=== PATIENT | male | born 1970 | race Two or more races ===

== ENCOUNTER 2025-06-19 13:13 | Inpatient (IN) | payer OTHER ==
[2025-06-19] VITALS (23 sets, daily range): BP systolic 136–166; BP diastolic 90–107
[~2025-06-19] VITALS: Ht 177.8 cm; Wt 82.8 kg
[2025-06-19 13:49] LABS: BASOPHILS ABSOLUTE AUTO 0.02 K/mm3 (0.00-0.23); BASOPHILS PERCENT AUTO 0 % (0-2); EOSINOPHILS ABSOLUTE AUTO 0.00 K/mm3 (0.00-0.68); EOSINOPHILS PERCENT AUTO 0 % (0-6); Hematocrit 47.5 % (37.0-53.0); Hemoglobin 16.0 g/dL (13.5-17.5); IMMATURE GRAN ABSOLUTE AUTO 0.04 K/mm3 (0.00-0.10); IMMATURE GRAN PERCENT AUTO 0 % (0-1); LYMPHOCYTES ABSOLUTE AUTO 2.16 K/mm3 (0.84-5.20); LYMPHOCYTES PERCENT AUTO 18 % (21-46); MONOCYTES ABSOLUTE AUTO 0.84 K/mm3 (0.16-1.47); MONOCYTES PERCENT AUTO 7 % (4-13); Mean Corpuscular HGB Conc 33.7 g/dL (31.5-36.5); Mean Corpuscular Volume 89 fL (80-100); NEUTROPHILS ABSOLUTE AUTO 9.27 K/mm3 (1.96-9.15); NEUTROPHILS PERCENT AUTO 75 % (41-73); NRBC ABSOLUTE 0.00 K/mm3 (0.00-0.02); NRBC Auto 0.0 /100 WBC (0.0-0.2); Platelet Count 316 K/mm3 (150-400); RDW Coefficient Variation 12.1 % (11.7-14.2); RDW Standard Deviation 39.2 fL (35.1-46.3)
[2025-06-19 14:14] LABS: Alanine Aminotransfer (ALT/SGP 34.0 U/L (12-78); Albumin, Blood 3.8 g/dL (3.4-5.0); Albumin/Globulin Ratio 1.0 (0.8-1.8); Anion Gap 11.0 mmol/L (3-11); Aspartate Aminotrans (AST/SGOT 24.0 U/L (12-37); Bilirubin, Total 1.4 mg/dL (0.1-1.0); Blood Urea Nitrogen 24.0 mg/dL (8-24); CO2, Blood 26.0 mmol/L (21-32); Calcium, Blood 8.9 mg/dL (8.5-10.1); Chloride, Blood 96.0 mmol/L (98-108); Creatinine, Blood 0.73 mg/dL (0.60-1.20); Globulin, Blood 4.0 g/dL (2.2-4.0); Glucose, Blood 288.0 mg/dL (70-99); Potassium, Blood 3.1 mmol/L (3.5-5.5); Sodium, Blood 130.0 mmol/L (136-145); Total Protein, Blood 7.8 g/dL (6.4-8.2)
[2025-06-19 14:23] LABS: pH Blood Venous 7.51 (7.34-7.37)
[2025-06-19] MEDS ORDERED: NS 1,000 ML IV SCH ×3 (14:45→16:40)
[2025-06-19] MEDS ORDERED: CefTRIAXone Sodium 1,000 MG in NS 50 ML IV ONE ×2 (15:05→17:15)
[2025-06-19 15:19] LABS: Source, Urine Clean Catch
[2025-06-19 15:25] LABS: Bilirubin, Urine Neg (Neg); Color, Urine Yellow (P-Yellow); Glucose Qualitative, Urine 4+ (Neg); Ketones, Urine 2+ (Neg); Leukocyte Esterase, Urine Neg (Neg); Protein, Urine 3+ (Neg); Specific Gravity, Urine 1.020 (1.003-1.022); Urobilinogen, Urine NORM (Normal)
[2025-06-19 15:40] LABS: U Amphetamine Screen Not Detected; U Barbiturate Screen Not Detected; U Benzodiazapine Screen Not Detected; U Buprenorphine Screen Not Detected; U Cannabinoids Screen Not Detected; U Cocaine Screen Not Detected; U Methadone Screen Not Detected; U Methamphetamine Screen Not Detected; U Opiates Screen Not Detected; U Oxycodone Screen Not Detected; U Phencyclidine Screen Not Detected
[2025-06-19 15:47] LABS: White Blood Cells, Urine 0-2 /hpf (0-5)
[2025-06-19] MEDS ORDERED: FLU VACC TS2025-26(6MOS UP)/PF 45 MCG/0.5 ML SYRINGE IM SCH (16:40)
[2025-06-19] MEDS ORDERED: Aspir 8181 MG PO (16:48)
[2025-06-19] MEDS ORDERED: Amlodipine Bes2.5 MG PO (16:48)
[2025-06-19] MEDS ORDERED: ATOR40TA PO (16:49)
[2025-06-19] MEDS ORDERED: CARV25 PO (16:49)
[2025-06-19] MEDS ORDERED: CLOP75 PO (16:49)
[2025-06-19] MEDS ORDERED: CYCL10 PO (16:50)
[2025-06-19] MEDS ORDERED: JARDIANCE25 MG PO (16:50)
[2025-06-19] MEDS ORDERED: FENO54 PO (16:50)
[2025-06-19] MEDS ORDERED: FREESTYLE LIBR1 EAC7 MC (16:51)
[2025-06-19] MEDS ORDERED: LEVO T PO (16:51)
[2025-06-19] MEDS ORDERED: PANT40 PO (16:52)
[2025-06-19] MEDS ORDERED: METF500 PO (16:52)
[2025-06-19] MEDS ORDERED: MAGNESIUM OXID500 MG PO (16:52)
[2025-06-19] MEDS ORDERED: RAMI5 PO (16:53)
[2025-06-19] MEDS ORDERED: Ondansetron HCl 2 MG / ML 2ML Vial IV PRN (16:55)
[2025-06-19] MEDS ORDERED: CefTRIAXone Sodium 2,000 MG in NS 100 ML IV SCH (17:00)
[2025-06-19] MEDS ORDERED: GENTAMICIN IV SCH (17:00)
[2025-06-19] MEDS ORDERED: Vancomycin (Pharmacy Consult) IV SCH (17:00)
[2025-06-19 17:57] LABS: Influenza A, PCR NEGATIVE (NEGATIVE); Influenza B, PCR NEGATIVE (NEGATIVE); Resp Syncytial Virus, PCR NEGATIVE (NEGATIVE); SARS-Cov-2 (COVID-19) PCR, MMC NEGATIVE (NEGATIVE)
[2025-06-19] MEDS ORDERED: Insulin Human Lispro 100 Units/ML 3ML Syringe SC SCH (18:00)
[2025-06-19] MEDS ORDERED: Ampicillin Sod 2,000 MG in NS 100 ML IV SCH (18:00)
[2025-06-19] MEDS ORDERED: Acyclovir 750 MG in Dextrose 5% 250 ML IV SCH (19:00)
--- NOTE | 2025-06-19 19:11 | NUR ---
PT ARRIVED AT 1715. CT PE STUDY COMPLETED AND PT REMAINS INTUBATED AND SEDATED NEURO: RASS -4, NO GAG, COUGH OR CORNEAL REFLEX. NO BABINSKI. DOES NOT RESPOND TO PAIN. FEBRILE T 103. COOLING BLANKET APPLIED CARDIAC: SINUS TACH, HR 100-110S, SBP 140-150S. PULM: COARSE RHONCHI UPPER/MID LOBES, VERY DIM IN BASES. ET 8.0 24CM AT TEETH. ACVC 16/450/5/40 GI: ABDOMEN IS MODERATLEY DISTENDED, FIRM TO PALPATION. UNABLE TO COLLECT STOOL SPECIMENS NO BM. ABSENT BOWEL TONES. OG TUBE IN PLACE TO LIS. : JARQUIN IN PLACE DRAINING CLEAR/YELLOW URINE. GOOD UOP SKIN: INTACT. LARGE SKIN TAG ON MID BACK/SHOULDERS - INTACT
[2025-06-19] MEDS ORDERED: Rocuronium Bromide 10 MG/ML 5ML Injection IV ONE (19:27)
[2025-06-19] MEDS ORDERED: Etomidate 2MG / ML 10ML Vial XX ONE (19:27)
[2025-06-19] MEDS ORDERED: FentaNYL Citrate 50 MCG/ML 2 ML Injection IV PRN (20:00)
[2025-06-19] MEDS ORDERED: Ampicillin Sodium 2000MG Vial IV SCH (20:00)
[2025-06-19] MEDS ORDERED: LORazepam 2 MG/ML 1ML Injection IV PRN (20:00)
[2025-06-19] MEDS ORDERED: Cetylpyridinium Chloride 1 EA MISC MT SCH (20:00)
[2025-06-19] MEDS ORDERED: Heparin Sodium,Porcine 5,000 UNIT/0.5 ML SDV SC SCH (21:00)
[2025-06-20] VITALS (83 sets, daily range): BP systolic 119–185; BP diastolic 75–113
[2025-06-20] MEDS ORDERED: Hydrogen Peroxide 1.5 % Solution MT SCH
[2025-06-20] MEDS ORDERED: Insulin Regular 100 UNIT/ML 10ML Vial SC SCH
[2025-06-20 03:03] LABS: BASOPHILS ABSOLUTE AUTO 0.02 K/mm3 (0.00-0.23); BASOPHILS PERCENT AUTO 0 % (0-2); EOSINOPHILS ABSOLUTE AUTO 0.00 K/mm3 (0.00-0.68); EOSINOPHILS PERCENT AUTO 0 % (0-6); Hematocrit 40.8 % (37.0-53.0); Hemoglobin 13.9 g/dL (13.5-17.5); IMMATURE GRAN ABSOLUTE AUTO 0.03 K/mm3 (0.00-0.10); IMMATURE GRAN PERCENT AUTO 0 % (0-1); LYMPHOCYTES ABSOLUTE AUTO 1.73 K/mm3 (0.84-5.20); LYMPHOCYTES PERCENT AUTO 18 % (21-46); MONOCYTES ABSOLUTE AUTO 0.58 K/mm3 (0.16-1.47); MONOCYTES PERCENT AUTO 6 % (4-13); Mean Corpuscular HGB Conc 34.1 g/dL (31.5-36.5); Mean Corpuscular Volume 88 fL (80-100); NEUTROPHILS ABSOLUTE AUTO 7.20 K/mm3 (1.96-9.15); NEUTROPHILS PERCENT AUTO 75 % (41-73); NRBC ABSOLUTE 0.00 K/mm3 (0.00-0.02); NRBC Auto 0.0 /100 WBC (0.0-0.2); Platelet Count 250 K/mm3 (150-400); RDW Coefficient Variation 12.4 % (11.7-14.2); RDW Standard Deviation 39.7 fL (35.1-46.3)
[2025-06-20 03:14] LABS: pH Blood Venous 7.53 (7.34-7.37)
[2025-06-20 03:23] LABS: Gentamicin, Random 1.8 ug/Ml
[2025-06-20 03:27] LABS: Magnesium, Blood 2.1 mg/dL (1.6-2.4)
[2025-06-20 03:33] LABS: Alanine Aminotransfer (ALT/SGP 28.0 U/L (12-78); Albumin, Blood 2.8 g/dL (3.4-5.0); Albumin/Globulin Ratio 0.8 (0.8-1.8); Anion Gap 11.0 mmol/L (3-11); Aspartate Aminotrans (AST/SGOT 24.0 U/L (12-37); Bilirubin, Total 1.3 mg/dL (0.1-1.0); Blood Urea Nitrogen 15.0 mg/dL (8-24); CO2, Blood 23.0 mmol/L (21-32); Calcium, Blood 7.5 mg/dL (8.5-10.1); Chloride, Blood 105.0 mmol/L (98-108); Creatinine, Blood 0.54 mg/dL (0.60-1.20); Globulin, Blood 3.3 g/dL (2.2-4.0); Glucose, Blood 221.0 mg/dL (70-99); Phosphorus, Blood 0.7 mg/dL (2.5-4.9); Potassium, Blood 2.4 mmol/L (3.5-5.5); Sodium, Blood 137.0 mmol/L (136-145); Total Protein, Blood 6.1 g/dL (6.4-8.2)
[2025-06-20] MEDS ORDERED: Potassium Phosphate Dibasic 30 MM in Dextrose 5% 500 ML IV STA (04:06)
--- NOTE | 2025-06-20 05:05 | NUR ---
SHIFT SUMMARY PT REMAINS UNARROUSABLE TO ANY STIMULI, PUPILS PINPOINT, EYES FIXED FORWARD WHILE MOVING HEAD SIDE TO SIDE AND CERVICAL NECK STIFF WITH MANUAL REPOSITIONING, PT REMAINS FEBRILE T/O THE NIGHT WITH TMAX 103.7. PT VENTILATED AC/VC MODE 16/450/5/30% FIO2 AND TOLERATING WELL WITH SPO2 >95%. SBP IN THE 140-160'S AND HR 90-100'S SINUS TACHYCARDIA. ABDOMEN REMAINS DISTENDED, WITH BOWEL TONES PRESENT, NO BM THIS SHIFT. TEMP JARQUIN CATHETER IN PLACE, PATENT, AND DRAINING TO GRAVITY. PROPOFOL INFUSING @ 30MCG/KG/MIN FOR SEDATION. NO IMMEDIATE CONCERNS NTOED AT THIS TIME. WILL REPORT TO ONCOMING RN
[2025-06-20] MEDS ORDERED: CALCIUM GLUC IN NACL, ISO-OSM 50 ML IV ONE (07:35)
[2025-06-20 09:08] LABS: Phosphorus, Blood 1.3 mg/dL (2.5-4.9); Potassium, Blood 2.7 mmol/L (3.5-5.5)
[2025-06-20 12:13] LABS: Acinetobacter baumannii DNA Not Detected copy/mL (NOT DETECT); Chlamydia pneumonia Not Detected (NOT DETECT); Enterobacter cloacae DNA Not Detected copy/mL (NOT DETECT); Escherichia coli DNA Not Detected copy/mL (NOT DETECT); Haemophilus influenzae DNA Not Detected copy/mL (NOT DETECT); Human Coronavirus RNA Not Detected (NOT DETECT); Human Metapneumovirus RNA Not Detected (NOT DETECT); Influenza virus A RNA Not Detected (NOT DETECT); Influenza virus B RNA Not Detected (NOT DETECT); Klebsiella aerogenes DNA Not Detected copy/mL (NOT DETECT); Klebsiella oxytoca DNA Not Detected copy/mL (NOT DETECT); Klebsiella pneumoniae DNA Not Detected copy/mL (NOT DETECT); Moraxella catarrhalis DNA Not Detected copy/mL (NOT DETECT); Proteus sp DNA Not Detected copy/mL (NOT DETECT); Pseudomonas aeruginosa DNA Not Detected copy/mL (NOT DETECT); Respiratory syncytial Vir RNA Not Detected (NOT DETECT); Rhinovirus+Enterovirus RNA Not Detected (NOT DETECT); Serratia marcescens DNA Not Detected copy/mL (NOT DETECT); Staphylococcus aureus DNA Not Detected copy/mL (NOT DETECT); Streptococcus agalactiae DNA Not Detected copy/mL (NOT DETECT); Streptococcus pneumoniae DNA Not Detected copy/mL (NOT DETECT); Streptococcus pyogenes DNA Not Detected copy/mL (NOT DETECT)
[2025-06-20] MEDS ORDERED: POTASSIUM PHOSPHATE DIBASIC IV ONE (12:30)
[2025-06-20] MEDS ORDERED: NS IV ONE (12:30)
[2025-06-20 13:03] LABS: Gentamicin, Random <0.2 ug/Ml; Magnesium, Blood 2.1 mg/dL (1.6-2.4); Potassium, Blood 3.2 mmol/L (3.5-5.5)
--- NOTE | 2025-06-20 13:19 | NUR ---
SBT/SAT THIS AM 5831-2600. PT ON SPONTANEOUS FOR ALMOST 2HR 12/5 50% FIO2. PT REMAINS OFF SEDATION. NEURO: ALERT, FOLLOWING COMMANDS, NO COUGH, GAG OR SWALLOW. ABLE TO NOD YES AND NO. GOOD STUDENT ACCOUNTS MANAGER AND MOVING BLE'S. PERRLA. PULM: RR INCREASED TO 30-40S. SPO2 DECREASED TO 90-91% PLACED BACK ON ACVC 16/450/5/30. SPO2 >95%. COPIOUS ORAL SECREATIONS. SOME SCANT THICK YELLOW SPUTUM. GI: ABDOMENT REMAINS MODERATELY DISTENDED, TAUT AND FIRM. HE DOES HAVE BOWEL TONES PRESENT TODAY. : IMPRESSIVE UOP, YELLOW/CLEAR FROM JARQUIN. SKIN: INTACT, SKIN TAG TO MID BACK. UNABLE TO CONTACT FAMILY WITH AN UPDATE NO CONTACT INFORMATIO IN HIS CHART AT THIS TIME. LUMBAR PUNCTURE DELAYED DUE TO PO PLAVIX. UNABLE TO COLLECT STOOL SAMPLE PT HAS NOT HAD A BM.
[2025-06-20] MEDS ORDERED: Calcium Chloride 10% 2,000 MG in NS 100 ML IV ONE ×2 (13:35→20:45)
--- NOTE | 2025-06-20 15:39 | NUR ---
PT PLACED BACK ON SEDATION STARTING TO BITE AT ET TUBE AND GRIMACING. BECOMING ANXIOUS. HE REMAINS INTUBATED. NO CHANGES IN SETTINGS. DAUGHTERS AT [facility] GIVEN UPDATE BY DR BAEZ AND I SPENT 45MIN WITH THEM ANSWERING VARIOUS QUESTIONS AND PROVIDING EDUCATION. THEY DID VIDEO CALL THEIR MOTHER AND I WAS ABLE TO UPDATE HER WELL. MORE HISTORY PROVIDED BY DAUGHTERS. THEY STATED THAT 1-2 DAYS PRIOR TO ADMISSION HE HAD DEVELOPED CRAMPING IN HIS LEFT LOWER EXTREMITY AND IT WAS EFFECTING HIS MOBILITY AND CAUSED DIFFICULTY WALKING. HE REMAINS HYPERTENSIVE SBP 180S, DR BACH RESTARTED HOME CARDIAC MEDICATIONS I ADMINISTERED THROUGH HIS OG. HE IS INTERMITTENTLY FEBRILE WITH COOLING BLANKET AND TYLENOL. PT HAS STILL NOT HAD A BM TO COLLECT STOOL SAMPLES. HE REMAINS WITH NO COUGH, GAG OR SWALLOW AND COPIOUS CLEAR ORAL SECRETIONS.
[2025-06-20 17:36] LABS: Vancomycin, Trough 6.4 ug/mL (5.0-10.0)
[2025-06-20 20:33] LABS: Phosphorus, Blood 2.4 mg/dL (2.5-4.9); Potassium, Blood 2.5 mmol/L (3.5-5.5)
[2025-06-20] MEDS ORDERED: Potassium Phosphate Dibasic 20 MM in NS 500 ML IV ONE (20:45)
[2025-06-21] VITALS (79 sets, daily range): BP systolic 126–170; BP diastolic 80–115
[2025-06-21 03:24] LABS: BASOPHILS ABSOLUTE AUTO 0.02 K/mm3 (0.00-0.23); BASOPHILS PERCENT AUTO 0 % (0-2); EOSINOPHILS ABSOLUTE AUTO 0.05 K/mm3 (0.00-0.68); EOSINOPHILS PERCENT AUTO 1 % (0-6); Hematocrit 37.2 % (37.0-53.0); Hemoglobin 12.6 g/dL (13.5-17.5); IMMATURE GRAN ABSOLUTE AUTO 0.03 K/mm3 (0.00-0.10); IMMATURE GRAN PERCENT AUTO 0 % (0-1); LYMPHOCYTES ABSOLUTE AUTO 2.07 K/mm3 (0.84-5.20); LYMPHOCYTES PERCENT AUTO 22 % (21-46); MONOCYTES ABSOLUTE AUTO 0.56 K/mm3 (0.16-1.47); MONOCYTES PERCENT AUTO 6 % (4-13); Mean Corpuscular HGB Conc 33.9 g/dL (31.5-36.5); Mean Corpuscular Volume 89 fL (80-100); NEUTROPHILS ABSOLUTE AUTO 6.92 K/mm3 (1.96-9.15); NEUTROPHILS PERCENT AUTO 72 % (41-73); NRBC ABSOLUTE 0.00 K/mm3 (0.00-0.02); NRBC Auto 0.0 /100 WBC (0.0-0.2); Platelet Count 189 K/mm3 (150-400); RDW Coefficient Variation 12.3 % (11.7-14.2); RDW Standard Deviation 40.1 fL (35.1-46.3)
[2025-06-21 03:47] LABS: Alanine Aminotransfer (ALT/SGP 22.0 U/L (12-78); Albumin, Blood 2.2 g/dL (3.4-5.0); Albumin/Globulin Ratio 0.7 (0.8-1.8); Anion Gap 9.0 mmol/L (3-11); Aspartate Aminotrans (AST/SGOT 27.0 U/L (12-37); Bilirubin, Total 1.8 mg/dL (0.1-1.0); Blood Urea Nitrogen 8.0 mg/dL (8-24); CO2, Blood 26.0 mmol/L (21-32); Calcium, Blood 8.1 mg/dL (8.5-10.1); Chloride, Blood 106.0 mmol/L (98-108); Creatinine, Blood 0.52 mg/dL (0.60-1.20); Globulin, Blood 3.1 g/dL (2.2-4.0); Glucose, Blood 147.0 mg/dL (70-99); Magnesium, Blood 1.5 mg/dL (1.6-2.4); Phosphorus, Blood 2.0 mg/dL (2.5-4.9); Potassium, Blood 2.6 mmol/L (3.5-5.5); Sodium, Blood 138.0 mmol/L (136-145); Total Protein, Blood 5.3 g/dL (6.4-8.2)
[2025-06-21 04:17] LABS: pH Blood Arterial 7.52 (7.35-7.45)
[2025-06-21] MEDS ORDERED: Potassium Chl 20MEQ/Water100ML 100 ML IV SCH (05:05)
[2025-06-21] MEDS ORDERED: Magnesium Sulf 2 GM/Water 50ML 50 ML IV ONE ×2 (05:05→17:50)
[2025-06-21] MEDS ORDERED: Potassium Phosphate Dibasic 20 MM in Dextrose 5% 500 ML IV ONE (05:05)
[2025-06-21] MEDS ORDERED: Potassium Phos/Sodium Phos 250 MG PACK PT SCH (05:40)
[2025-06-21] MEDS ORDERED: Potassium Phosphate Dibasic 30 MM in Dextrose 5% 500 ML IV ONE (06:00)
--- NOTE | 2025-06-21 06:22 | NUR ---
SHIFT SUMM: PT REMAINS INTUBATED AND SEDATED AND VENT SETTINGS REMAIN UNCHANGED. PROPOFOL INFUSING (SEE FLOWSHEET). RASS -3 PT MEDICATED FOR PAIN PER EMAR. COOLING BLANKET ON PT WITH A MAX TEMP OF 102 AND MEDICATED PER EMAR. PATENT OGT. SBP'S 140'S-170'S, HR IN 70-80'S. SPO2 >96% INTUBATED AND SEDATED. PIV'S REMAIN PATENT.Q6 BS COMPLETED. Q2 TURNS COMPLETED AND BED BATH AND LINEN CHANGE COMPLETED. CHG BATH COMPLETE AND CATH CARE DONE. BED LOW AND LOCKED FOR SAFETY.
--- NOTE | 2025-06-21 08:29 | NUR ---
ASSUMPTION OF CARE ASSUMED CARE OF PATIENT AT APPROX 0700. PATIENT INTUBATED AND SEDATED. RASS -3. PROPOFOL INFUSING PER EMAR. SEE FLOWSHEET FOR TITRATIONS. VENT SETTINGS AC/VC 16/450/8 30%. WITH SPO2 >94%. HR SINUS IN THE 80S-90S. BP STABLE WITH MAPS >65. OGT PATENT. TEMP JARQUIN PATENT AND DRAINING URINE TO GRAVITY. COOLING BLANKET ON PATIENT FOR CONTINUED ELEVATED TEMP. CALL LIGHT IN REACH. BED IN LOWEST POSITION.
[2025-06-21 15:23] LABS: HIV 1,2 COMBO ANTIGEN/ANTIBODY Negative (Negative)
[2025-06-21 17:35] LABS: Magnesium, Blood 1.8 mg/dL (1.6-2.4); Potassium, Blood 2.6 mmol/L (3.5-5.5); Vancomycin, Trough 14.0 ug/mL (5.0-10.0)
[2025-06-21 17:35] LABS: RHEUMATOID FACTOR <10 IU/mL (0-14)
--- NOTE | 2025-06-21 17:50 | NUR ---
SHIFT SUMMARY PATIENT INTUBATED. RASS -2. PATIENT OCCATIONALLY TRACKS AND CAN GIVE THUMBS UP AND WIGGLE TOES, BUT IS EXTREMELY SLOW TO RESPOND. VENT SETTINGS AC/VC 16/450/8 40% FIO2 WITH SPO2 >94%. HR SINUS IN THE 80S-90S. BP STABLE WITH MAPS >65. PATIENT HAD SBT TODAY AND WAS ABLE TO TOLERATE THAT FOR A COUPLE OF HOURS. OGT PATENT AND DRAINING TO LOW INTERMITTENT SUCTION. TEMP JARQUIN PATENT AND DRAINING CLEAR YELLOW URINE TO GRAVITY. TMAX 100.5. PATIENT MEDICATED PER EMAR. COOLING BLANKET IN PLACE. PATIENT HAD SMEAR BM X2 TODAY, BUT NOT ENOUGH STOOL OUT TO COLLECT A SAMPLE. CALL LIGHT IN REACH. BED IN LOWEST POSITION. FAMILY UPDATED ON PATIENT PLAN OF CARE TODAY. CONTACTED DR BACH AT 1745 ABOUT PATIENTS LABS. POTASSIUM 2.6 AND MAG 1.8. ORDERS FOR MAG SULFATE AND KCL PUT IN PER DR BACH.
--- NOTE | 2025-06-21 20:05 | NUR ---
PT UPDATE: PT HAD AN APPROXIMATELY ONE MINUTE SEIZURE. PT WAS ADMINISTERED ATIVAN AND PRIMARY NURSE WAS NOTIFIED.
--- NOTE | 2025-06-21 21:27 | NUR ---
ASSUMPTION OF CARE NOTE: PT REMAINS INTUBATED AND EYES OPEN BUT DOES NOT TRACK AT THIS TIME AND HAS A RIGHT SIDED GAZE. NO PURPOSEFUL MOVEMNT AT THIS TIME AND PT IS UNABLE TO FOLLOW COMMANDS. ATIVAN GIVEN PER EMAR UPON BEGINNING OF SHIFT DO TO RT WITNESSING PT HAVING A SEIZURE, THIS RN DID NOT WITNESS A SEIZURE. PT HAS COOLING BLANKET ON A TEMP ON 99.0. PATENT SARINA PICC LINE AND PATENT PIV'S. PATENT TEMP JARQUIN AND RECTAL TUBE DRAINING TO GRAVITY. SBP'S 150'S AND HR IN 70-80'S. SPO2 >96% ON VENT (SEE VENT SETTINGS). OGT SET TO LIS PT HAS BED LOW AND LOCKED FOR SAFETY.
[2025-06-21 22:35] LABS: Campylobacter Sp Not Detected (NOT DETECT); E. Coli O157 Not Detected (NOT DETECT); Enteroaggregative E. coli-EAEC Not Detected (NOT DETECT); Enteropathogenic E. coli-EPEC Not Detected (NOT DETECT); Enterotoxigenic E. coli-ETEC Not Detected (NOT DETECT); Salmonella Sp Not Detected (NOT DETECT); Shiga Toxin-prod E. coli-STEC Not Detected (NOT DETECT); Shigella/Enteroin E. coli-EIEC Not Detected (NOT DETECT); Vibrio Sp Not Detected (NOT DETECT)
[2025-06-21] MEDS ORDERED: NS 250 ML IV PRN (23:20)
[2025-06-22] VITALS (56 sets, daily range): BP systolic 122–176; BP diastolic 62–146
[2025-06-22 04:11] LABS: Magnesium, Blood 2.0 mg/dL (1.6-2.4)
[2025-06-22 04:24] LABS: Anion Gap 10.0 mmol/L (3-11); Blood Urea Nitrogen 10.0 mg/dL (8-24); CO2, Blood 28.0 mmol/L (21-32); Calcium, Blood 7.6 mg/dL (8.5-10.1); Chloride, Blood 98.0 mmol/L (98-108); Creatinine, Blood 0.43 mg/dL (0.60-1.20); Glucose, Blood 144.0 mg/dL (70-99); Phosphorus, Blood 1.5 mg/dL (2.5-4.9); Potassium, Blood 2.4 mmol/L (3.5-5.5); Sodium, Blood 134.0 mmol/L (136-145)
[2025-06-22] MEDS ORDERED: Potassium Phosphate Dibasic 30 MM in Dextrose 5% 500 ML IV ONE (05:30)
--- NOTE | 2025-06-22 06:17 | NUR ---
SHIFT SUMM: PT REMAINS INTUBATED AND SEDATION TURNED BACK ON FOR PT AT 0130 AT 10MCG/KG/MIN (SEE FLOW SHEET FOR TITRATIONS). PT CONTINUES TO HAVE A RIGHT SIDED GAZE AND DOES NOT TRACK ME AT THIS TIME OR ABLE TO FOLLOW COMMANDS.NO PURPOSEFUL MOVEMENTS NOTICED EXCEPT PT HAS TRIED TO GRAB AT TUBE DURING BED BATH.PT HAS BEEN MEDICATED FOR PAIN PER EMAR. PT CONTINUES TO SOUND DIM ESPECIALLY ON L SIDE OF LUNGS PER RT. PER DR BACH CHEST X RAY COMPLETED AND RECCOMENDATION OF RT INCREASING PEEP TO 10 COMPLETED. Q6 BS CHECKS COMPLETED. .SBP'S 140-160'S AND HR IN 70-80'S. SPO2 >90% WITH SOME DESATTING THIS SHIFT AND PER DR COLON AFTER LOOKING AT X-RAY HE SAID TO HAVE RT ADVANCE THE THE ETT TUBE 2 CM AND NOW AT 24CM AT THE TEETH. PT HAS HAD NO FEVER THIS SHIFT AND COOLING BLANKET HAS BEEN REMOVED. TEMP JARQUIN REMAINS PATENT AND SARINA PICC AND PIV'S REMAIN PATENT. OGT SET TO LIS. BED BATH COMPLETED AND CHG BATH AND FRANCESCO CARE WIPES TO CLEAN JARQUIN. BED LOW AND LOCKED FOR SAFETY AND BUE SOFT RESTRAINTS IN PLACE.
--- NOTE | 2025-06-22 08:00 | NUR ---
ASSUMPTION OF CARE ASSUMED CARE OF PATIENT AT APPROX 0800. PATIENT INTUBATED AND SEDATED. VENT SETTINGS AC/VC 16/450/10 40% FIO2 WITH SPO2 >94%. RASS -1 TO -2. PATIENT ABLE TO FOLLOW COMMANDS, BUT IS SLOW TO DO SO AND MORE SLOW WITH THE LEFT THAN THE RIGHT. PATIENT HAS PICC TO SARINA WITH PROPOFOL RUNNING PER EMAR. SEE FLOWSHEET FOR TITRATIONS. HR SINUS IN THE 90S. BP STABLE WITH MAPS >65. OGT PATENT AND CLAMPED. RECTAL TUBE PATENT AND DRAINING TO GRAVITY. TEMP JARQUIN PATENT AND DRAINING PALE YELLOW URINE TO GRAVITY. CALL LIGHT IN REACH. BED IN LOWEST POSITION.
[2025-06-22 08:03] LABS: BASOPHILS ABSOLUTE AUTO 0.02 K/mm3 (0.00-0.23); BASOPHILS PERCENT AUTO 0 % (0-2); EOSINOPHILS ABSOLUTE AUTO 0.21 K/mm3 (0.00-0.68); EOSINOPHILS PERCENT AUTO 2 % (0-6); Hematocrit 36.2 % (37.0-53.0); Hemoglobin 12.4 g/dL (13.5-17.5); IMMATURE GRAN ABSOLUTE AUTO 0.04 K/mm3 (0.00-0.10); IMMATURE GRAN PERCENT AUTO 0 % (0-1); LYMPHOCYTES ABSOLUTE AUTO 1.49 K/mm3 (0.84-5.20); LYMPHOCYTES PERCENT AUTO 14 % (21-46); MONOCYTES ABSOLUTE AUTO 0.46 K/mm3 (0.16-1.47); MONOCYTES PERCENT AUTO 4 % (4-13); Mean Corpuscular HGB Conc 34.3 g/dL (31.5-36.5); Mean Corpuscular Volume 87 fL (80-100); NEUTROPHILS ABSOLUTE AUTO 8.53 K/mm3 (1.96-9.15); NEUTROPHILS PERCENT AUTO 79 % (41-73); NRBC ABSOLUTE 0.00 K/mm3 (0.00-0.02); NRBC Auto 0.0 /100 WBC (0.0-0.2); Platelet Count 220 K/mm3 (150-400); RDW Coefficient Variation 12.0 % (11.7-14.2); RDW Standard Deviation 38.9 fL (35.1-46.3)
[2025-06-22 09:38] LABS: pH Blood Venous 7.47 (7.34-7.37)
[2025-06-22] MEDS ORDERED: levETIRAcetam 4,500 MG in NS 100 ML IV STA (11:49)
[2025-06-22 12:34] LABS: Anion Gap 10.0 mmol/L (3-11); Blood Urea Nitrogen 9.0 mg/dL (8-24); CO2, Blood 29.0 mmol/L (21-32); Calcium, Blood 7.3 mg/dL (8.5-10.1); Chloride, Blood 97.0 mmol/L (98-108); Creatinine, Blood 0.45 mg/dL (0.60-1.20); Glucose, Blood 199.0 mg/dL (70-99); Potassium, Blood 2.6 mmol/L (3.5-5.5); Sodium, Blood 133.0 mmol/L (136-145); Thyroid Stimulating Hormone 5.67 uIU/mL (0.360-4.800)
[2025-06-22] MEDS ORDERED: Potassium Chl 20MEQ/Water100ML 100 ML IV SCH (12:55)
[2025-06-22 14:06] LABS: ANTI-NUCLEAR AB ANA,IGG ELISA None Detected (None Detected)
--- NOTE | 2025-06-22 17:05 | NUR ---
DISCHARGE NOTE PATIENT DISCHARGED AT 1550 WITH REACH TEAM, KAREN TO [facility]. REPORT GIVEN TO NIKUNJ MCKEON AT [facility]. PATIENTS DAUGHTERS TOOK ALL OF PATIENTS BELONGINGS AT TIME OF TRANSFER.
[2025-06-23 02:59] LABS: EBV AB TO EARLY (D) AG IGG <5.0 U/mL (<=8.9); EBV AB TO VIRAL CAPSID AG IGG 115.0 U/mL (<=17.9); EBV AB TO VIRAL CAPSID AG IGM <10.0 U/mL (<=35.9); EBV ANTIBODY TO NUCLEAR AG IGG <3.0 U/mL (<=17.9)
[2025-06-23] MEDS ORDERED: Multivitamins 1 Tab PT SCH (09:00)
[2025-06-25 00:36] LABS: OVA AND PARASITE,FECAL INTERP Negative (Negative)
== END 2025-06-22 15:50 | disposition short-term general hospital (02) | DRG 871 ==
LOC: ER 13:13 → ICUE 16:37
PROVIDERS: Emergency Medicine; Family Medicine; Internal Medicine Critical Care Medicine; Physician Assistant; Student in an Organized Health Care Education/Training Program; ADMIT Internal Medicine
PROC: 5A1945Z Respiratory Ventilation, 24-96 Consecutive Hours (ICD-10-PCS; principal; 2025-06-19)
PROC: 0DH67UZ Insertion of Feeding Device into Stomach, Via Natural or Artificial Opening (ICD-10-PCS; 2025-06-19)
PROC: 3E03329 Introduction of Other Anti-infective into Peripheral Vein, Percutaneous Approach (ICD-10-PCS; 2025-06-19)
PROC: 0T9B70Z Drainage of Bladder with Drainage Device, Via Natural or Artificial Opening (ICD-10-PCS; 2025-06-19)
PROC: 0BH17EZ Insertion of Endotracheal Airway into Trachea, Via Natural or Artificial Opening (ICD-10-PCS; 2025-06-19)
PROC: 02HV33Z Insertion of Infusion Device into Superior Vena Cava, Percutaneous Approach (ICD-10-PCS; 2025-06-21)
PROC: 4A033R1 Measurement of Arterial Saturation, Peripheral, Percutaneous Approach (ICD-10-PCS; 2025-06-21)
PROC: 3E0G76Z Introduction of Nutritional Substance into Upper GI, Via Natural or Artificial Opening (ICD-10-PCS; 2025-06-22)
DX: A41.9 Sepsis, unspecified organism (principal); G03.9 Meningitis, unspecified; G93.41 Metabolic encephalopathy; J96.01 Acute respiratory failure with hypoxia; G04.90 Encephalitis and encephalomyelitis, unspecified; G93.6 Cerebral edema; Z78.1 Physical restraint status; R65.20 Severe sepsis without septic shock; I25.10 Atherosclerotic heart disease of native coronary artery without angina pectoris; E11.9 Type 2 diabetes mellitus without complications; K21.9 Gastro-esophageal reflux disease without esophagitis; I10 Essential (primary) hypertension; E03.9 Hypothyroidism, unspecified; K59.81 Ogilvie syndrome; E78.5 Hyperlipidemia, unspecified; R56.9 Unspecified convulsions; Z79.890 Hormone replacement therapy; Z87.891 Personal history of nicotine dependence; Z95.5 Presence of coronary angioplasty implant and graft; I25.2 Old myocardial infarction
CPT/HCPCS: 0528U; 31500; 36415; 36569; 36600; 51702; 70450; 70470; 71045; 71260; 74177; 80048; 80053; 80170; 80202; 80320; 81001; 82140; 82330; 82728; 82803; 82947; 83605; 83690; 83735; 84100; 84132; 84145; 84443; 84484; 85025; 85379; 85651; 86038; 86140; 86431; 86663; 86664; 86665; 87207; 87389; 87507; 87637; 93005; 93010; 94002; 94003; 96361-59; 96365-59; 99285-25; A9270; C1751; J0133; J0290; J0612; J0696; J1580; J1644; J1815; J1953; J2060; J2704; J3010; J3373; J3475; J3480; J7030; J7040; J7050; J7060; Q9967